=== PATIENT | male | born 1940 | race Caucasian/White ===

== ENCOUNTER → 2017-05-24 | Outpatient (CLI) | payer MEDICARE ==
[~2017-05-24] MED LIST: AMLO5TAB2 PO; ASPI-1005 PO; CALC600T12 PO; CARV12.511 PO; FENO43CA5 PO; GABA-318 PO; GLUC-145 PO; INSULIN PUMP SQ; IRON18TA PO; LISI1TAB13 PO; MULT-40 PO; OMEG1CAP6 PO; ROSU10TA PO; ZOLP10TA6 PO
== END | disposition home or self-care (01) ==
LOC: OIH 10:25
PROVIDERS: ATTEND Family Medicine
DX: I12.9 Hypertensive chronic kidney disease with stage 1 through stage 4 chronic kidney disease, or unspecified chronic kidney disease (principal); N18.9 Chronic kidney disease, unspecified
CPT/HCPCS: 71046

== ENCOUNTER 2017-05-31 06:10 | Day surgery (SDC) | payer MEDICARE ==
[2017-05-30 16:22] VITALS: BP 165/66
[2017-05-30 16:46] LABS: CREATININE 1.8 mg/dL (0.5-1.5); POTASSIUM 4.6 mmol/L (3.5-5.1)
[~2017-05-31] VITALS: Ht 162.6 cm; Wt 112.9 kg
[2017-05-31] VITALS (13 sets, daily range): BP systolic 75–139; BP diastolic 28–107
[~2017-05-31 06:10] MED LIST changes: -CALC600T12 PO; +CEFAZOLIN 3GM /D5W 100ML 100 ML IV SCH; -GLUC-145 PO
[2017-05-31] MEDS ORDERED: SODIUM CHLORIDE 0.9% 1000ML 1,000 ML IV ONE (08:14)
[2017-05-31] MEDS ORDERED: WATER FOR INJECTION,STERILE 20 ML VIAL ONE ×2 (08:16→08:17)
[2017-05-31] MEDS ORDERED: CEFAZOLIN SODIUM 1 GM VIAL ONE (08:16)
[2017-05-31] MEDS ORDERED: LIDOCAINE PF 2% 5ML ABBOJECT ONE (08:29)
[2017-05-31] MEDS ORDERED: ONDANSETRON HCL 4 MG/2 ML VIAL ONE (08:29)
[2017-05-31] MEDS ORDERED: GLYCOPYRROLATE 0.2 MG/ML 5 ML VIAL ONE (08:29)
[2017-05-31] MEDS ORDERED: DEXAMETHASONE SOD PHOSPHATE 10MG/ML 1ML VIAL ONE (08:29)
[2017-05-31] MEDS ORDERED: MIDAZOLAM HCL 1 MG/ML 2ML VIAL ONE (08:30)
[2017-05-31] MEDS ORDERED: FENTANYL CITRATE PF 50 MCG/1 ML 2ML VIAL ONE (08:30)
[2017-05-31] MEDS ORDERED: PROPOFOL 10 MG/ML 20ML VIAL IV ONE (08:30)
[2017-05-31] MEDS ORDERED: MEPERIDINE-PF 25 MG/ML SYG ONE (10:42)
== END 2017-05-31 12:15 | disposition home or self-care (01) ==
LOC: DAH 06:10
PROVIDERS: ATTEND Orthopaedic Surgery
DX: S83.242A Other tear of medial meniscus, current injury, left knee, initial encounter (principal); M22.42 Chondromalacia patellae, left knee; I25.10 Atherosclerotic heart disease of native coronary artery without angina pectoris; E78.5 Hyperlipidemia, unspecified; E11.42 Type 2 diabetes mellitus with diabetic polyneuropathy; G89.29 Other chronic pain; I10 Essential (primary) hypertension; Z79.82 Long term (current) use of aspirin; Z79.4 Long term (current) use of insulin; X58.XXXA Exposure to other specified factors, initial encounter; Y93.89 Activity, other specified; Y92.89 Other specified places as the place of occurrence of the external cause; Y99.8 Other external cause status; Z98.42 Cataract extraction status, left eye; Z98.41 Cataract extraction status, right eye; Z98.890 Other specified postprocedural states; Z83.3 Family history of diabetes mellitus; Z82.49 Family history of ischemic heart disease and other diseases of the circulatory system
CPT/HCPCS: 29881; 36415; 80048; 82948 ×2; A4606; A4649 ×2; A4930; A6223; J0690; J1100; J2001; J2175; J2250; J2405; J2704; J3010; J3490; J7030

== ENCOUNTER → 2018-02-03 | Outpatient (CLI) | payer MEDICARE ==
[~2018-02-03] MED LIST changes: -AMLO5TAB2 PO; +AMLO5TAB7 PO; -CEFAZOLIN 3GM /D5W 100ML 100 ML IV SCH
[2018-02-03 16:04] LABS: CREATININE 1.5 mg/dL (0.5-1.5)
== END | disposition home or self-care (01) ==
LOC: LAB 15:12
PROVIDERS: ATTEND Physical Medicine & Rehabilitation
DX: E11.65 Type 2 diabetes mellitus with hyperglycemia (principal)
CPT/HCPCS: 36415; 82565; 84520

== ENCOUNTER → 2018-02-04 | Outpatient (CLI) | payer MEDICARE ==
[~2018-02-04] MED LIST changes: +GADOBENATE DIMEGLUMINE 10 ML IV ONE
== END | disposition home or self-care (01) ==
LOC: RAH 08:42
PROVIDERS: ATTEND Physical Medicine & Rehabilitation
DX: M48.061 Spinal stenosis, lumbar region without neurogenic claudication (principal); M43.26 Fusion of spine, lumbar region; M89.38 Hypertrophy of bone, other site
CPT/HCPCS: 72158; A9577

== ENCOUNTER → 2018-03-05 | Outpatient (CLI) | payer MEDICARE ==
[~2018-03-05] MED LIST changes: -GADOBENATE DIMEGLUMINE 10 ML IV ONE
== END | disposition home or self-care (01) ==
LOC: RAH 06:44
PROVIDERS: ATTEND Physical Medicine & Rehabilitation
DX: M48.02 Spinal stenosis, cervical region (principal); M54.12 Radiculopathy, cervical region; G93.89 Other specified disorders of brain
CPT/HCPCS: 72141

== ENCOUNTER 2018-09-30 05:44 | Day surgery (SDC) | payer MEDICARE ==
[2018-09-26 09:05] VITALS: BP 144/75
[2018-09-26 09:34] LABS: BASOPHILS % (AUTO) 1.3 % (0.0-5.0); EOSINOPHILS % (AUTO) 1.9 % (0.0-8.0); LYMPHOCYTES % (AUTO) 13.8 % (21.0-51.0); MEAN CORPUSCULAR HEMOGLOBIN 27.4 pg (27.0-33.0); MEAN CORPUSCULAR HGB CONC 33.4 g/dL (32.0-36.0); MEAN CORPUSCULAR VOLUME 82.1 fL (79-99); MONOCYTES % (AUTO) 11.2 % (3.0-13.0); NEUTROPHILS % (AUTO) 71.8 % (40.0-77.0); PLATELET COUNT (AUTO) 206 K/uL (130-400); RED BLOOD CELL COUNT(AUTO) 4.99 MIL/uL (4.50-6.20); WHITE BLOOD COUNT (AUTO) 6.5 K/uL (4.8-10.8)
[2018-09-26 09:41] LABS: CREATININE 1.6 mg/dL (0.5-1.5); POTASSIUM 5.9 mmol/L (3.5-5.1)
--- NOTE | 2018-09-26 09:55 | NUR ---
INSULIN PUMP PATIENT HAS AN INSULIN PUMP AND CHANGES INSULIN SYRING Q3 DAYS. CALLED DR. HERRON, ANESTHESIOLOGIST, TO SEE IF PATIENT SHOULD STOP INSULIN THE NIGHT BEFORE OR AM OF SURGERY.DR. HERRON SAID HE WOULD CALL US BACK. ADVISED PATIENT HE WOULD BE CALLED TO SEE WHAT HE NEEDS TO DO.
--- NOTE | 2018-09-26 10:20 | NUR ---
PATIENT INSULIN PUMP DR. HERRON CAME BY AND INFORMED OF PATIENT HAVING AN INSULIN PUMP AND NEEDED INSTRUCTIONS FOR PATIENT. SAID TO HAVE PATIENT CALL HIS DOCTOR TO SEE WHAT HE SHOULD DO. SPOKE TO PATIENT AT [address] HERRON WANTS HIM TO CALL HIS PHYSICIAN FOR RECOMMENDATION ON INSULIN PUMP. PATIENT SAID HE WOULD CALL HIS PHYSICIAN.
--- NOTE | 2018-09-29 13:39 | NUR ---
Patient called to notify staff that Primary care doctor advised him to disconnect insulin pump for procedure and just have OR team monitor sugar levels while in procedure.
--- NOTE | 2018-09-29 13:47 | NUR ---
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 Spoke to Deloris
[~2018-09-30] VITALS: Ht 162.6 cm; Wt 110.3 kg
[2018-09-30] VITALS (11 sets, daily range): BP systolic 127–152; BP diastolic 56–76
[~2018-09-30 05:44] MED LIST changes: -AMLO5TAB7 PO; +AMLO5TAB9 PO; -ASPI-1005 PO; +ATOR10TA69 PO; -GABA-318 PO; +GABA600T10 PO; -IRON18TA PO; -MULT-40 PO; -OMEG1CAP6 PO; -ROSU10TA PO
[2018-09-30] MEDS: CEFAZOLIN SODIUM 1 GM VIAL IVP SCH ×2 (06:00→07:30)
[2018-09-30] MEDS ORDERED: SODIUM CHLORIDE 0.9% 1000ML 1,000 ML IV ONE (06:11)
[2018-09-30 06:34] LABS: POTASSIUM 5.6 mmol/L (3.5-5.1)
[2018-09-30] MEDS ORDERED: PROPOFOL 10 MG/ML 20ML VIAL IV ONE (07:28)
[2018-09-30] MEDS ORDERED: LIDOCAINE PF 2% 5ML ABBOJECT ONE (07:28)
[2018-09-30] MEDS ORDERED: ROCURONIUM 10MG/1ML SYR 10 MG/ML ML ONE (07:28)
[2018-09-30] MEDS ORDERED: FENTANYL CITRATE PF 50 MCG/1 ML 2ML VIAL ONE ×2 (07:29→10:28)
[2018-09-30] MEDS ORDERED: BUPIVACAINE/EPI/PF 0.25% 30ML VIAL IJ ONE (07:29)
[2018-09-30] MEDS ORDERED: THROMBIN-JMI 5000 UNIT/VIAL TP ONE (07:29)
[2018-09-30] MEDS ORDERED: BACITRACIN 50,000 UNIT VIAL ONE (07:30)
[2018-09-30] MEDS ORDERED: EPHEDRINE SULFATE 50 MG/ML AMPULE ONE (08:07)
[2018-09-30] MEDS ORDERED: KETOROLAC TROMETHAMINE 30MG/ML ONE (09:51)
[2018-09-30] MEDS ORDERED: MEPERIDINE-PF 25 MG/ML SYG ONE (10:19)
--- NOTE | 2018-09-30 11:00 | NUR ---
ASSESSMENT RECEIVED PT FROM PACU STAFF ZENY RECINOS RN. PT [id number]. DRSG TO LEFT ELBOW DRY AND INTACT. NO BLEEDING, OOZING NOTED TO SITE. AT BEDSIDE.
--- NOTE | 2018-09-30 11:40 | NUR ---
DISCHARGE ORAL AND WRITTEN DISCHARGE INSTRUCTIONS GIVEN TO PT AND PTS ALONG WITH PRESCRIPTION. NO OTHER QUESTIONS AT THIS TIME. INSTRUCTED TO FOLLOW DR. MARTHA CALDERÓN FOR HOME CARE. BOTH VERBALIZED UNDERSTANDING.
== END 2018-09-30 11:45 | disposition home or self-care (01) ==
LOC: DAH 05:44
PROVIDERS: ATTEND Neurological Surgery
DX: G56.22 Lesion of ulnar nerve, left upper limb (principal); I25.10 Atherosclerotic heart disease of native coronary artery without angina pectoris; E11.9 Type 2 diabetes mellitus without complications; I10 Essential (primary) hypertension; Z79.82 Long term (current) use of aspirin; Z79.899 Other long term (current) drug therapy; Z79.4 Long term (current) use of insulin; Z98.890 Other specified postprocedural states
CPT/HCPCS: 24147; 36415 ×2; 64718; 80048 ×2; 82948; 85025; 93005; A4218; A4649; C1713; J0690; J1885; J2001; J2175; J2704; J3010 ×2; J3490 ×3; J7030; J7120

== ENCOUNTER → 2019-04-14 | Outpatient (CLI) | payer MEDICARE ==
[~2019-04-14] VITALS: Ht 162.6 cm; Wt 111.1 kg
[~2019-04-14] MED LIST changes: -LISI1TAB13 PO; +LISI1TAB29 PO; +REGADENOSON 0.4 MG/5 ML PF SYG IVP SCH
== END | disposition home or self-care (01) ==
LOC: SHCH 08:13
PROVIDERS: ATTEND Internal Medicine Cardiovascular Disease
DX: I25.10 Atherosclerotic heart disease of native coronary artery without angina pectoris (principal)
CPT/HCPCS: 78452; 93017; 96374; A9500 ×2; J2785

== ENCOUNTER → 2019-06-01 | Outpatient (CLI) | payer MEDICARE ==
[~2019-06-01] VITALS: Ht 162.6 cm; Wt 113.1 kg
[~2019-06-01] MED LIST changes: +ASPI-555 PO; +CARV25TA PO; -FENO43CA5 PO; +FENO43CA8 PO; +FISH12002 PO; +IRON18TA PO; +ISOS30TA6 PO; +MAGN250T10 PO; +MULT-1192 PO; -REGADENOSON 0.4 MG/5 ML PF SYG IVP SCH
[2019-06-01 13:00] VITALS: BP 138/64
[2019-06-01 13:03] LABS: BASOPHILS % (AUTO) 0.8 % (0.0-5.0); EOSINOPHILS % (AUTO) 3.4 % (0.0-8.0); HEMATOCRIT 39.9 % (42-54); LYMPHOCYTES % (AUTO) 13.9 % (21.0-51.0); MEAN CORPUSCULAR HEMOGLOBIN 26.1 pg (27.0-33.0); MEAN CORPUSCULAR HGB CONC 31.6 g/dL (32.0-36.0); MEAN CORPUSCULAR VOLUME 82.8 fL (79-99); MONOCYTES % (AUTO) 13.5 % (3.0-13.0); NEUTROPHILS % (AUTO) 68.1 % (40.0-77.0); PLATELET COUNT (AUTO) 234 K/uL (130-400); RED BLOOD CELL COUNT(AUTO) 4.82 MIL/uL (4.50-6.20); RED CELL DISTRIBUTION WIDTH 15.1 % (11.0-15.5); WHITE BLOOD COUNT (AUTO) 6.1 K/uL (4.8-10.8)
[2019-06-01 13:05] LABS: APPEARANCE,URINE Clear (CLEAR); BILIRUBIN,URINE Negative (NEGATIVE); COLOR,URINE Yellow (YELLOW); GLUCOSE, URINE (UA) Negative (NEGATIVE); KETONES,URINE Negative (NEGATIVE); LEUKOCYTE ESTERASE ,URINE Negative (NEGATIVE); NITRATE,URINE Negative (NEGATIVE); OCCULT BLOOD,URINE Negative (NEGATIVE); PROTEIN,URINE Negative (NEGATIVE); UROBILINOGEN,URINE 0.2 mg/dL (0.2-1.0)
[2019-06-01 13:12] LABS: CREATININE 1.8 mg/dL (0.5-1.5); POTASSIUM 5.1 mmol/L (3.5-5.1)
[2019-06-01 13:19] LABS: INR 1.02 (0.85-1.15); PARTIAL THROMBOPLASTIN TIME 28.7 SEC (26.3-35.5); PROTHROMBIN TIME 10.7 SEC (9.6-11.6)
== END | disposition home or self-care (01) ==
LOC: DAH 10:00 → EDSTATUS 06-04 11:00
PROVIDERS: ATTEND Internal Medicine Cardiovascular Disease
DX: Z01.818 Encounter for other preprocedural examination (principal); I25.10 Atherosclerotic heart disease of native coronary artery without angina pectoris; R94.39 Abnormal result of other cardiovascular function study; Z79.899 Other long term (current) drug therapy; Z87.891 Personal history of nicotine dependence; Z82.3 Family history of stroke; Z82.49 Family history of ischemic heart disease and other diseases of the circulatory system; Z79.01 Long term (current) use of anticoagulants
CPT/HCPCS: 36415; 71045; 80048; 81003; 85025; 85610; 85730; 93005

== ENCOUNTER 2019-06-19 05:54 | Day surgery (SDC) | payer MEDICARE ==
[2019-06-17 14:09] LABS: BASOPHILS % (AUTO) 0.9 % (0.0-5.0); EOSINOPHILS % (AUTO) 3.3 % (0.0-8.0); HEMATOCRIT 36.1 % (42-54); LYMPHOCYTES % (AUTO) 13.8 % (21.0-51.0); MEAN CORPUSCULAR HEMOGLOBIN 26.8 pg (27.0-33.0); MEAN CORPUSCULAR HGB CONC 32.4 g/dL (32.0-36.0); MEAN CORPUSCULAR VOLUME 82.8 fL (79-99); MONOCYTES % (AUTO) 11.9 % (3.0-13.0); NEUTROPHILS % (AUTO) 69.6 % (40.0-77.0); PLATELET COUNT (AUTO) 192 K/uL (130-400); RED BLOOD CELL COUNT(AUTO) 4.36 MIL/uL (4.50-6.20); RED CELL DISTRIBUTION WIDTH 15.4 % (11.0-15.5); WHITE BLOOD COUNT (AUTO) 5.7 K/uL (4.8-10.8)
[2019-06-17 14:17] LABS: CREATININE 1.9 mg/dL (0.5-1.5); POTASSIUM 5.4 mmol/L (3.5-5.1)
[2019-06-17 14:18] LABS: APPEARANCE,URINE Clear (CLEAR); BILIRUBIN,URINE Negative (NEGATIVE); COLOR,URINE Yellow (YELLOW); GLUCOSE, URINE (UA) 250 mg/dL (NEGATIVE); KETONES,URINE Negative (NEGATIVE); LEUKOCYTE ESTERASE ,URINE Negative (NEGATIVE); NITRATE,URINE Negative (NEGATIVE); OCCULT BLOOD,URINE Negative (NEGATIVE); PH,URINE 5.5 (5.0-8.0); PROTEIN,URINE Negative (NEGATIVE)
[2019-06-17 14:29] LABS: PARTIAL THROMBOPLASTIN TIME 28.2 SEC (26.3-35.5)
[2019-06-17 14:39] LABS: INR 1.08 (0.85-1.15); PROTHROMBIN TIME 11.3 SEC (9.6-11.6)
[2019-06-17 14:40] VITALS: BP 131/54
[2019-06-17 14:46] LABS: BACTERIA,URINE Rare /HPF (None Seen); RBC,URINE 0-1 /HPF (0-1); SQUAMOUS EPITHELIAL CELL,UR Rare /HPF (0-2); WBC,URINE 0-1 /HPF (0-1)
--- NOTE | 2019-06-17 15:22 | NUR ---
DR. WYLIE OFFICE NOTIFIED OF PT HAVING PROCEDURE, THEY STATED THEY WILL ASK MD AND CALL US BACK WITH ORDERS.
--- NOTE | 2019-06-18 11:25 | NUR ---
LABS INFORMED Mel BLANC NP OF ABNORMAL POTASSIUM, BUN/CREA. SHE WILL INFORM DR. FULTON AND CALL US BACK. ALSO INFORMED HER OF PENDING RECOMMENDATIONS FOR INSULIN PUMP ON PT PER DR. WYLIE.
--- NOTE | 2019-06-18 14:20 | NUR ---
INSULIN PUMP DR. CY TERAN NURSE ON PHONE. STATES PER DR WYLIE, PT'S INSULIN PUMP DOSE WILL BE CUT IN HALF OF NORMAL HOURLY DOSE AdminISTERED. PT CAN STILL BE NPO PAST MIDNIGHT. PTS PUMP IS A [employer] PUMP THAT ADMINISTERS NOVOLOG.
--- NOTE | 2019-06-18 14:25 | NUR ---
LABS INFORMED Mel BLANC NP OF DR. WYLIE'S RECOMMENDATIONS. ORDERS RECEIVED TO HAVE PT HYDRATE WITH NS @50ML/HR ON ARRIVAL MORNING OF PROCEDURE.
[2019-06-19] VITALS (10 sets, daily range): BP systolic 101–141; BP diastolic 42–61
[~2019-06-19] VITALS: Ht 162.6 cm; Wt 111.8 kg
[~2019-06-19 05:54] MED LIST changes: -CARV12.511 PO; +SODIUM CHLORIDE 0.9% 500ML 500 ML IV SCH
[2019-06-19] MEDS ORDERED: SODIUM CHLORIDE 0.9% 1000ML 1,000 ML IV SCH (06:00)
[2019-06-19] MEDS ORDERED: NITROGLYCERIN 1 MG/VIAL VIAL IV ONE (07:09)
[2019-06-19] MEDS ORDERED: IOHEXOL 350 MG/ML 100ML INFUS..BTL IV ONE (07:09)
[2019-06-19] MEDS ORDERED: LIDOCAINE HCL 2% 20ML ONE (07:09)
[2019-06-19] MEDS ORDERED: HEPARIN SODIUM 1000UNIT/ML 10ML VIAL ONE (07:09)
[2019-06-19] MEDS ORDERED: IOHEXOL-350 50ML VIAL IV ONE (07:10)
[2019-06-19] MEDS ORDERED: FENTANYL CITRATE PF 50 MCG/1 ML 2ML VIAL ONE ×2 (07:28→08:01)
[2019-06-19] MEDS ORDERED: MIDAZOLAM HCL 1 MG/ML 2ML VIAL ONE (07:28)
[2019-06-19] MEDS ORDERED: GLUCAGON 1MG KIT 1 MG ML IM PRN (08:15)
[2019-06-19] MEDS ORDERED: DEXTROSE 50%-WATER 50 ML DISP.SYRIN IV PRN (08:15)
--- NOTE | 2019-06-19 08:45 | NUR ---
INSULIN PUMP PER , SHE DISCONTINUED PT'S INSULIN PUMP AND SHE WILL GO TO DR. WYILE'S OFFICE RIGHT NOW TO HAVE DOSE READJUSTED.
--- NOTE | 2019-06-19 09:05 | NUR ---
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 WE REPOSITIONED PT BY LOG ROLLING, STATES IT DOES NOT HELP. CALLED FABRIZIO BLANC NP FOR DR. FULTON AND NOTIFIED OF PT'S COMPLAINT. PER FABRIZIO, WE MAY RAISE HOB 15 DEGREES NOW AND MAY RAISE ANOTHER 15 DEGREES IN ANOTHER HOUR. PT REPOSITIONED AND HOB RAISED 15 DEGREES. PT VERBALIZED RELIEF, STATES HIS BACK FEELS A LOT BETTER AND WANTS TO BE IN THIS POSITION.
--- NOTE | 2019-06-19 12:15 | NUR ---
DISCHARGE PT DISCHARGED VIA WHEELCHAIR WITH . PT STABLE. CATH SITE RIGHT GROIN REMAINS SOFT, DRESSING DRY AND INTACT. DISCHARGE INSTRUCTIONS GIVEN TO , VERBALIZED UNDERSTANDING. Addendum: 06/19/19 at 1321 by SURENDRA RAMIREZ RN RN ADDENDUM: PT TOLERATED DIET WELL, VOIDED PRIOR TO DISCHARGE.
== END 2019-06-19 12:15 | disposition home or self-care (01) ==
LOC: DAH 05:54 → EDSTATUS 13:00
PROVIDERS: ATTEND Internal Medicine Cardiovascular Disease
DX: I25.10 Atherosclerotic heart disease of native coronary artery without angina pectoris (principal); I12.9 Hypertensive chronic kidney disease with stage 1 through stage 4 chronic kidney disease, or unspecified chronic kidney disease; E11.22 Type 2 diabetes mellitus with diabetic chronic kidney disease; N18.3 Chronic kidney disease, stage 3 (moderate); E78.5 Hyperlipidemia, unspecified; E11.42 Type 2 diabetes mellitus with diabetic polyneuropathy; Z98.890 Other specified postprocedural states; Z90.49 Acquired absence of other specified parts of digestive tract; Z98.41 Cataract extraction status, right eye; Z98.42 Cataract extraction status, left eye; Z87.891 Personal history of nicotine dependence; Z79.82 Long term (current) use of aspirin; Z79.899 Other long term (current) drug therapy; Z79.84 Long term (current) use of oral hypoglycemic drugs; Z79.4 Long term (current) use of insulin; Z82.49 Family history of ischemic heart disease and other diseases of the circulatory system
CPT/HCPCS: 36415; 80048; 81001; 82948 ×2; 85025; 85610; 85730; 93458; A4215; A4216; A4221; A4222; A4223 ×3; A4606; A4663; C1760; C1894; J1644; J2250; J3010 ×2; J3490 ×2; J7030; Q9965; Q9967 ×2; 99156; 99157

== ENCOUNTER → 2019-07-08 | Outpatient (CLI) | payer MEDICARE ==
[~2019-07-08] MED LIST changes: +ALBUTEROL SULFATE 0.083% 2.5 MG/3 ML INH IH ONE; -LISI1TAB29 PO; -SODIUM CHLORIDE 0.9% 500ML 500 ML IV SCH
== END | disposition home or self-care (01) ==
LOC: RESP 08:26
PROVIDERS: ATTEND Internal Medicine Cardiovascular Disease
DX: J98.4 Other disorders of lung (principal); D64.9 Anemia, unspecified
CPT/HCPCS: 94060; 94727; 94729

== ENCOUNTER → 2020-01-07 | Outpatient (CLI) | payer MEDICARE ==
[~2020-01-07] MED LIST changes: -ALBUTEROL SULFATE 0.083% 2.5 MG/3 ML INH IH ONE; -ASPI-555 PO; +ASPI-556 PO
== END | disposition home or self-care (01) ==
LOC: RAH 09:52
PROVIDERS: ATTEND Physical Medicine & Rehabilitation
DX: M51.16 Intervertebral disc disorders with radiculopathy, lumbar region (principal); M48.061 Spinal stenosis, lumbar region without neurogenic claudication; Z98.890 Other specified postprocedural states
CPT/HCPCS: 72148

== ENCOUNTER → 2020-02-09 | Outpatient (CLI) | payer MEDICARE | END | disposition home or self-care (01) | LOC: RAH 10:24 | PROVIDERS: ATTEND Physical Medicine & Rehabilitation | DX: M47.816 Spondylosis without myelopathy or radiculopathy, lumbar region (principal); M48.061 Spinal stenosis, lumbar region without neurogenic claudication; M25.78 Osteophyte, vertebrae; M16.0 Bilateral primary osteoarthritis of hip; Z98.1 Arthrodesis status | CPT/HCPCS: 72114; 72131; 73521 ==

== ENCOUNTER → 2020-07-05 | Outpatient (CLI) | payer MEDICARE ==
[~2020-07-05] MED LIST changes: +AMLO-257 PO; -AMLO5TAB9 PO; -ISOS30TA6 PO; +ISOS30TA92 PO
== END | disposition home or self-care (01) ==
LOC: OIH 16:14
PROVIDERS: ATTEND Internal Medicine Nephrology
DX: M47.817 Spondylosis without myelopathy or radiculopathy, lumbosacral region (principal)
CPT/HCPCS: 72110

== ENCOUNTER → 2020-07-12 | Outpatient (CLI) | payer MEDICARE | END | disposition home or self-care (01) | LOC: RAH 09:24 | PROVIDERS: ATTEND Internal Medicine Nephrology | DX: K80.20 Calculus of gallbladder without cholecystitis without obstruction (principal); M51.36 Other intervertebral disc degeneration, lumbar region; R91.1 Solitary pulmonary nodule | CPT/HCPCS: 74176 ==

== ENCOUNTER → 2020-07-28 | Outpatient (CLI) | payer MEDICARE ==
[2020-07-28 14:59] LABS: CREATININE 1.9 mg/dL (0.5-1.5)
== END | disposition home or self-care (01) ==
LOC: RAH 13:04
PROVIDERS: ATTEND Urology
DX: N44.2 Benign cyst of testis (principal); N43.3 Hydrocele, unspecified; M48.062 Spinal stenosis, lumbar region with neurogenic claudication
CPT/HCPCS: 36415; 76870; 82565; 84520

== ENCOUNTER → 2020-08-15 | Outpatient (CLI) | payer MEDICARE ==
[2020-08-15 12:55] LABS: CREATININE 1.8 mg/dL (0.5-1.5)
== END | disposition home or self-care (01) ==
LOC: LAB 11:56
PROVIDERS: ATTEND Neurological Surgery
DX: M48.062 Spinal stenosis, lumbar region with neurogenic claudication (principal)
CPT/HCPCS: 36415; 82565; 84520

== ENCOUNTER → 2020-08-16 | Outpatient (CLI) | payer MEDICARE ==
[~2020-08-16] MED LIST changes: +GADODIAMIDE 10 MMOL/20 ML VIAL IV ONE
== END | disposition home or self-care (01) ==
LOC: RAH 10:30
PROVIDERS: ATTEND Neurological Surgery
DX: M48.061 Spinal stenosis, lumbar region without neurogenic claudication (principal); M51.26 Other intervertebral disc displacement, lumbar region; M43.26 Fusion of spine, lumbar region
CPT/HCPCS: 72158; A9579

== ENCOUNTER → 2023-11-14 | Outpatient (CLI) | payer MEDICARE ==
[~2023-11-14] MED LIST changes: -GADODIAMIDE 10 MMOL/20 ML VIAL IV ONE
== END | disposition home or self-care (01) ==
LOC: SHCH 15:08
PROVIDERS: ATTEND Internal Medicine Cardiovascular Disease
DX: I08.3 Combined rheumatic disorders of mitral, aortic and tricuspid valves (principal)
CPT/HCPCS: 93306

== ENCOUNTER → 2023-11-15 | Outpatient (CLI) | payer MEDICARE ==
[2023-11-15] MEDS: REGADENOSON 0.4 MG/5 ML PF SYG IVP ONE (14:44)
== END | disposition home or self-care (01) ==
LOC: SHCH 08:22
PROVIDERS: ATTEND Internal Medicine Cardiovascular Disease
DX: I45.10 Unspecified right bundle-branch block (principal); I25.10 Atherosclerotic heart disease of native coronary artery without angina pectoris; I51.7 Cardiomegaly
CPT/HCPCS: 78452; 96374; 93017; J2785; A9500 ×2

== ENCOUNTER → 2024-05-01 | Outpatient (CLI) | payer MEDICARE ==
[~2024-05-01] MED LIST changes: +GABA-1405 PO; -GABA600T10 PO
[2024-05-01 13:06] LABS: CREATININE 1.6 mg/dL (0.5-1.3); POTASSIUM 5.2 mmol/L (3.5-5.1); THYROID STIMULATING HORMONE 1.68 uIU/mL (0.36-3.74)
[2024-05-01 15:24] LABS: BASOPHILS # (AUTO) 0.07 K/uL (0.00-0.20); BASOPHILS % (AUTO) 0.8 % (0.0-5.0); EOSINOPHILS # (AUTO) 0.14 K/uL (0.00-0.70); EOSINOPHILS % (AUTO) 1.5 % (0.0-8.0); HEMATOCRIT 44.2 % (42-54); IMMATURE GRANULOCYTE ABSOLUTE 0.05 K/uL (0-1); LYMPHOCYTES # (AUTO) 1.2 K/uL (1.0-4.8); LYMPHOCYTES % (AUTO) 12.8 % (21.0-51.0); MEAN CORPUSCULAR HEMOGLOBIN 27.1 pg (27.0-33.0); MEAN CORPUSCULAR HGB CONC 31.9 g/dL (32.0-36.0); MEAN CORPUSCULAR VOLUME 84.8 fL (79-99); MONOCYTES # (AUTO) 0.9 K/uL (0.1-1.0); MONOCYTES % (AUTO) 10.1 % (3.0-13.0); NEUTROPHILS # (AUTO) 6.8 K/uL (1.8-7.7); NEUTROPHILS % (AUTO) 74.3 % (40.0-77.0); PLATELET COUNT (AUTO) 227 K/uL (130-400); RED BLOOD CELL COUNT(AUTO) 5.21 MIL/uL (4.50-6.20); RED CELL DISTRIBUTION WIDTH 15.9 % (11.0-15.5); WHITE BLOOD COUNT (AUTO) 9.1 K/uL (4.8-10.8)
== END | disposition home or self-care (01) ==
LOC: LAB 11:06
PROVIDERS: ATTEND Internal Medicine Cardiovascular Disease
DX: I10 Essential (primary) hypertension (principal); E78.5 Hyperlipidemia, unspecified
CPT/HCPCS: 36415; 80048; 80061; 84443; 85025

== ENCOUNTER → 2024-05-25 | Outpatient (CLI) | payer MEDICARE ==
--- NOTE | 2024-05-25 11:04 | HMCIMG ---
CT CHEST W/O CONTRAST HISTORY: Solitary pulmonary nodule COMPARISON: 04/19/2010 TECHNIQUE: Multiple sequential axial images of the chest were obtained from the thoracic inlet through upper abdomen. Patient was not given contrast through intravenous route. FINDINGS: Small left lower lobe pulmonary nodule is again seen measuring 8 mm slightly increase in size from previous study of 2009. This is most likely related to granuloma. There are interstitial fibrosis. No pleural effusion or pericardial effusion is seen. There is no evidence of pneumothorax. There are normal size mediastinal and hilar lymph nodes. The heart is borderline enlarged. Coronary arterial calcifications are seen. Degenerative changes of the thoracolumbar spine are present. There is no evidence of adrenal nodule. There are thoracic spine spondylosis. Right rib deformities are noted unchanged. IMPRESSION: 1. Small left lower lobe pulmonary nodule is again seen measuring 8 mm slightly increase in size from previous study of 2009. This is most likely related to granuloma. There are interstitial fibrosis. CT was performed with one or more following dose reduction techniques: automated exposure control, adjustment of the mA and kv according to patient's size, or use of a iterative reconstruction technique.
== END | disposition home or self-care (01) ==
LOC: RAH 10:16
PROVIDERS: ATTEND Internal Medicine Cardiovascular Disease
DX: J84.10 Pulmonary fibrosis, unspecified (principal); I25.10 Atherosclerotic heart disease of native coronary artery without angina pectoris; M47.815 Spondylosis without myelopathy or radiculopathy, thoracolumbar region; R91.1 Solitary pulmonary nodule
CPT/HCPCS: 71250

== ENCOUNTER 2024-06-04 14:45 | Emergency (ER) | payer MEDICARE ==
[~2024-06-04] VITALS: Ht 165.1 cm; Wt 104.3 kg
[2024-06-04] MEDS: acetaMINOPHEN 500 MG TABLET PO ONE (15:43)
--- NOTE | 2024-06-04 15:51 | ERN ---
General Chief Complaint: Mechanical Fall Stated Complaint: FALL Time Seen by MD: 14:46 Source: patient History of Present Illness Initial Comments Patient is a an 83-year-old male with a right hip pain and left shoulder discomfort. Per patient he was ambulating and slipped. He states he strained his right hip and landed on it as well. It was able to ambulate after the fall but states his right hip hurts. Allergies: Coded Allergies: No Known Drug Allergies (Verified Allergy, Unknown, 03/19/16) Home Meds Reported Medications Isosorbide Mononitrate (Isosorbide Mononitrate ER) 30 Mg Tab.er.24h, 30 MG PO DAILY, TAB 06/17/19 Carvedilol (Carvedilol) 25 Mg Tablet, 25 MG PO BID, TAB 06/17/19 Fish Oil/Borage/Flax/Om3,6,9#1 ([place] 3-6-9 1,200 mg Softgel) 1,200 Mg Capsule, 1200 MG PO BID, CAP 06/01/19 Magnesium Oxide (Magnesium) 250 Mg Tablet, 250 MG PO BID, TAB 06/01/19 Multivitamin (Multi-Vitamin Daily) 1 Each Tablet, 1 EACH PO DAILY, TAB 06/01/19 Aspirin (Aspir 81) 81 Mg Tablet.dr, 81 MG PO HS, TAB 06/01/19 Iron (Iron) 18 Mg Tablet, 27 MG PO BID, TAB 06/01/19 [Insulin Pump] No Conflict Check, SQ 09/26/18 Gabapentin (Gabapentin) 600 Mg Tablet, 600 MG PO TID, TAB 09/26/18 Atorvastatin Calcium (Atorvastatin Calcium) 10 Mg Tablet, 20 MG PO HS, TAB 04/09/18 Amlodipine Besylate (Amlodipine Besylate) 5 Mg Tablet, 5 MG PO DAILY, TAB 03/19/16 Fenofibrate,Micronized (Fenofibrate) 43 Mg Capsule, 54 MG PO HS, CAP 03/19/16 Zolpidem Tartrate (Zolpidem Tartrate) 10 Mg Tablet, 10 MG PO HS PRN for INSOMNIA, TAB 03/19/16 Past Medical History Past Medical History: Diabetes-Type II, High Cholesterol, Hypertension, Other Medical History Other: NUEROPATHY Past Surgical History: Other Surgical History Other: BACK AND NECK SURGERY ROS Dictation CONSTITUTIONAL: No chills, no fever, no weakness, no diaphoresis, no malaise. HEAD/FACE: No signs of trauma. EENT: No eye pain, no blurred vision, no tearing, no double vision, no ear pain, no ear discharge, no nose pain, no nasal congestion, no throat pain, no throat swelling, no mouth pain. RESPIRATORY: No cough, no orthopnea, no SOB, no stridor, no wheezing. CARDIOVASCULAR: No chest pain, no edema, no palpitations, no syncope. GASTROINTESTINAL/ABDOMINAL: No abdominal pain, no constipation, no diarrhea, no nausea, no vomiting. GENITOURINARY: No abnormal discharge, no dysuria, no frequent urination, no hematuria. No complaints of pain in the genitals. MUSCULOSKELETAL: No back pain, no gout, joint pain, no joint swelling, no m uscle pain, no muscle stiffness, no neck pain. INTEGUMENTARY: No change in color, no change in hair/nails, no dryness, no lesi on, no lumps, no rash. NEUROLOGICAL/PSYCH: No anxiety, not depressed, no emotional problem, no headache, no numbness, no pre-existing deficit, no history of seizures, no tremors, no weakness. HEMATOLOGIC/LYMPHATIC: Not anemic, no history of blood clots, no apparent bleeding, no bruising, glands not swollen. All Systems Negative, Except as Noted. Physical Exam Physical Exam Dictation VITAL SIGNS: Reviewed. GENERAL APPEARANCE: Alert, oriented x3, no acute distress, obese. HEAD AND FACE: Non-traumatic. EYES: PERRL, pink conjunctivas, eyelid no trauma, anterior chamber clear. EARS: Pinnas intact and no signs of trauma or erythema. Ear canals clear and no discharge. TMs no erythema. NOSE: No discharge, no bleeding. OROPHARYNX: Mouth normal, teeth no caries, tongue pink. Pharynx clear, no erythema. Tonsils no exudates, no abscesses noted. Mucous membrane moist. NECK: Supple, non-tender, no thyromegaly, no masses, no JVD, no bruits. BREAST: Deferred. CHEST: No tenderness, no crepitus, no paradoxical movement, no retractions. LUNGS: Clear, well-ventilated, symmetric, no rales, no wheezing, no rhonchi, no stridor, good breath sounds bilaterally. HEART: Regular rate, regular rhythm, no murmur, no gallops. VASCULAR: No peripheral edema. ABDOMEN: Soft, positive bowel sounds, nondistended, no guarding, nontender, no rebound, no masses no hepatomegaly, no splenomegaly, no Ambrose's sign, no hernias. RECTAL: Deferred. GENITAL: Deferred. NEUROLOGICAL: Normal speech, gross motor function intact, gross sensory function intact. MUSCULOSKELETAL: Neck nontender, full range of motion, back nontender, full range of motion. EXTREMITIES: Nontender, full range of motion. Right hip tenderness to palpation abduction tenderness flexion and extension tenderness, left shoulder pain on palpation able to abduct and adduct without pain. SKIN: Color pink, dry, no turgor, no rash, no lacerations, no abrasions, no contusions. LYMPHATICS: Deferred. Results Laboratory and Microbiology Labs Reviewed?: Yes EKG/XRAY/US/CT/MRI X-RAY Comment [address] [id number] IMAGING REPORT Signed PATIENT: JEANNETTE CASEY MR#: [id number] : 1940 SEX: M AGE: 83 LOCATION: [facility] ORDER 51 STATUS: [facility] [place] REPORT#: [id number] SERVICE 50 REASON: fall ORDERING PHYSICIAN: MYKE UMANZOR MD PROCEDURE: SHOL 2V LT - SHOULDER COMP 2+VWS LT SHOULDER COMP 2+VWS LT REASON: fall TECHNIQUE: 2 views were obtained. FINDINGS: There is no evidence of fracture or dislocation. There is no joint effusion. The soft tissues appear unremarkable. There is no evidence of a radiopaque foreign body. IMPRESSION: No acute findings. DICTATED BY: NIKITA JESSICA MD DATE: 06/04/245 ELECTRONICALLY SIGNED BY: NIKITA JESSICA MD DATE: 06/04/24 1638 [place] [address] [id number] IMAGING REPORT Signed PATIENT: JEANNETTE CASEY MR#: [id number] : 1940 SEX: M AGE: 83 LOCATION: [facility] ORDER 51 STATUS: REG ER REPORT#: [id number] SERVICE 50 REASON: fall ORDERING PHYSICIAN: MYKE UMANZOR MD PROCEDURE: HIPS B 3V - HIP BILAT 3-4VW HIP BILAT 3-4VW REASON: fall COMPARISON: None TECHNIQUE: AP pelvis and views of each hip, 5 views total. FINDINGS: There are surgical changes lower lumbar spine. Bones of the pelvis appear intact. SI joints are unremarkable. Hip joint spaces are preserved. Proximal femurs appear normal. There are no visible fractures. IMPRESSION: 1. No acute finding. DICTATED BY: NIKITA JESSICA MD DATE: 06/04/241648 ELECTRONICALLY SIGNED BY: NIKITA JESSICA MD DATE: 06/04/241653 CT Scan Comment PATIENT: JEANNETTE CASEY MR#: [id number] : 1940 SEX: M AGE: 83 LOCATION: [facility] ORDER 54 STATUS: REG ER REPORT#: [id number] SERVICE 53 REASON: right hip pain. s/p fall from car ORDERING PHYSICIAN: MYKE UMANZOR MD PROCEDURE: PELVIS WO - CT PELVIS W/O CONTRAST CT PELVIS W/O CONTRAST REASON: right hip pain. s/p fall from car COMPARISON: None TECHNIQUE: Axial images are obtained from iliac crests through the perineum. Sagittal and coronal reconstruction images were performed. FINDINGS: There are normal-appearing bones of the pelvis. There are no visible fractures. Proximal femurs appear unremarkable as well. 2-D and 3-D reconstruction images were obtained. Particular attention to the right hip shows normal findings, no evidence of fracture. L5 Template the dogs. The L1 vertebral body in her 100 there are surgical changes in the lower lumbar spine. Soft tissues appear unremarkable. IMPRESSION: 1. Negative CT pelvis, and normal appearance of the pelvic bones and of the right hip. DICTATED BY: NIKITA JESSICA MD DATE: 06/04/241913 ELECTRONICALLY SIGNED BY: NIKITA JESSICA MD DATE: 06/04/241918 MDM MDM: Differential diagnosis: Fall, hip fracture, shoulder fracture, Patient is a 83-year-old male coming in to be evaluated after he had a fall. X- ray did not disclose acute finding but based on his ongoing discomfort CT was ordered. ED Course Orders Procedure Category Date Status Time Hip Bilat 3-4vw RAD 06/04/24 Resulted 14:51 Shoulder Comp 2+Vws Lt RAD 06/04/24 Resulted 14:51 Acetaminophen 500mg PHA 06/04/24 Complete Tab (Tylenol 500mg T 15:00 Ct Pelvis W/O Contrast CT 06/04/24 Resulted 16:54 Ketorolac PHA 06/04/24 Complete Tromethamine 30mg/Ml 17:30 Current Medications Medications (Trade) Dose Ordered Sig/Shirley Route PRN Reason Start Time Stop Time Status Last Admin Dose Admin Acetaminophen (TYLenol 500MG TAB) 500 mg ONCE ONCE PO 06/04/24 15:00 06/04/24 15:01 DC 06/04/24 15:43 Ketorolac Tromethamine (toRADol) 30 mg ONCE ONCE IM 06/04/24 17:30 06/04/24 17:31 DC 06/04/24 17:35 Vital Signs Date Time Temp Pulse Resp B/P (MAP) Pulse Ox O2 Delivery O2 Flow Rate FiO2 06/04/24 18:16 97.5 74 22 170/85 95 Room Air* 0 21 06/04/24 14:46 98.8 78 20 156/65 98 Room Air 0 Patient was signed out to me by a.m. physician. This is an 83-year-old male who came into the emergency room with complaints of falling from standing. Apparently he was getting out of the car and he slipped basically landed on the right side of the body with hip and shoulder. He was trying to hold on with his left hand. No loss of consciousness no use of any blood thinners but he came in for pain X-rays of the right shoulder and hip did not show any acute changes fractures or dislocations. CT scan of the pelvis was essentially unremarkable for any acute fractures or dislocations. I updated the patient and his ajpdwv-on-ytw about the x-ray and CT findings and likely patient has contusion and plan to discharge home. Patient stated that his pain is very severe and he will not be driving Since his oyhvuh-md-tdp will be driving we will give a small dose of morphine for pain relief before discharge Problem List Problem Lists: (1) Contusion of right hip (2) Contusion of right shoulder (3) Fall (4) Degenerative disc disease DX & DISP Disposition: Discharge Departure Impression: Primary Impression: Fall Additional Impressions: Contusion of right hip, Contusion of right shoulder, Degenerative disc disease Condition: Stable Scripts Oxycodone HCl/Acetaminophen (Percocet 5-325 mg Tablet) 5 Mg-325 Mg Tablet 1 EACH PO Q6H for pain for 3 Days, #12 TAB 0 Refills Prov: LUIS NORIEGA MD 06/04/24 Additional Instructions: Patient and the caregiver have been informed of all the diagnostic tests and the imaging conducted during the today's visit to the emergency room and has verbalized understanding of the results I have personally reviewed and interpreted all diagnostic exams performed here in the ER today as well as the vital signs documented by the nursing staff. The patient is now being discharged to home and should follow up with the primary care physician or the specialist as directed by the ER staff. Follow-up with primary care provider in 1 to 2 days. Take medications as directed here in the emergency room. Okay to continue home medications unless otherwise discussed during your visit in the emergency room today. Return to [facility] emergency room if symptoms worsen or if there is no improvement. Call 911 if you need immediate assistance. Take Tylenol or Motrin bitj-igo-ufepyfu as needed and if no contraindications are present. Increase oral hydration. A wound culture or urine culture was ordered here in the emergency room department please follow-up with primary care provider and advise them to get repeat ports from our facility. If you had any Ethan wrap/splints that were applied here, please do not remove them until you see your primary care or specialty. Referrals: MONTSE GARCIA (PCP) MYKE UMANZOR MD Jun 04, 2024 15:51 LUIS NORIEGA MD Jun 04, 2024 19:49
--- NOTE | 2024-06-04 16:54 | HMCIMG ---
SHOULDER COMP 2+VWS LT REASON: fall TECHNIQUE: 2 views were obtained. FINDINGS: There is no evidence of fracture or dislocation. There is no joint effusion. The soft tissues appear unremarkable. There is no evidence of a radiopaque foreign body. IMPRESSION: No acute findings.
--- NOTE | 2024-06-04 16:54 | HMCIMG ---
HIP BILAT 3-4VW REASON: fall COMPARISON: None TECHNIQUE: AP pelvis and views of each hip, 5 views total. FINDINGS: There are surgical changes lower lumbar spine. Bones of the pelvis appear intact. SI joints are unremarkable. Hip joint spaces are preserved. Proximal femurs appear normal. There are no visible fractures. IMPRESSION: 1. No acute finding.
[2024-06-04] MEDS: ketOROlac 30MG VIAL (30MG/ML) IM ONE (17:35)
--- NOTE | 2024-06-04 19:19 | HMCIMG ---
CT PELVIS W/O CONTRAST REASON: right hip pain. s/p fall from car COMPARISON: None TECHNIQUE: Axial images are obtained from iliac crests through the perineum. Sagittal and coronal reconstruction images were performed. FINDINGS: There are normal-appearing bones of the pelvis. There are no visible fractures. Proximal femurs appear unremarkable as well. 2-D and 3-D reconstruction images were obtained. Particular attention to the right hip shows normal findings, no evidence of fracture. L5 Template the dogs. The L1 vertebral body in her 100 there are surgical changes in the lower lumbar spine. Soft tissues appear unremarkable. IMPRESSION: 1. Negative CT pelvis, and normal appearance of the pelvic bones and of the right hip.
[2024-06-04] MEDS ORDERED: OXYC-38 PO (19:44)
[2024-06-04] MEDS: morPHINE 2 MG SYG IM ONE (20:10)
[2024-06-04 20:11] VITALS: BP 165/75; PULSE 72; RESP 18; TEMP 98; O2SAT 98
== END 2024-06-04 20:23 | disposition home or self-care (01) ==
LOC: EDH 14:45
DX: S70.01XA Contusion of right hip, initial encounter (principal); S40.011A Contusion of right shoulder, initial encounter; E11.9 Type 2 diabetes mellitus without complications; E78.00 Pure hypercholesterolemia, unspecified; I10 Essential (primary) hypertension; Z79.4 Long term (current) use of insulin; Z79.82 Long term (current) use of aspirin; Z79.899 Other long term (current) drug therapy; W18.39XA Other fall on same level, initial encounter; Y93.89 Activity, other specified; Y92.89 Other specified places as the place of occurrence of the external cause; Y99.8 Other external cause status
CPT/HCPCS: 99285; 72192; 73522; 73030; 96372 ×2; J1885; J2270

== ENCOUNTER → 2024-10-22 | Outpatient (CLI) | payer MEDICARE ==
--- NOTE | 2024-10-22 11:17 | HMCIMG ---
Exam Type: MR SPINAL CANAL, CERV WO CON Clinical Information: M54.12 Radiculopathy, cervical region Comparison: None Findings: Extensive spondylitic changes with status post anterior fusion at C2-C6. There is intervening disc space fusion of all those levels. There is straightening consistent with spasm. there is an area of high signal intensity in the right aspect of the cord at the C6-7 level consistent with chronic myelomalacia. 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 IMPRESSION: Postoperative and chronic changes as noted. 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
== END | disposition home or self-care (01) ==
LOC: RAH 09:34
PROVIDERS: ATTEND Physical Medicine & Rehabilitation
DX: M54.12 Radiculopathy, cervical region (principal); M46.82 Other specified inflammatory spondylopathies, cervical region; M43.21 Fusion of spine, occipito-atlanto-axial region; M48.02 Spinal stenosis, cervical region
CPT/HCPCS: 72141